=== PATIENT | female | born 1980 | race Native Hawaiian/Other Pacific Islander ===

== ENCOUNTER → 2017-07-24 | Outpatient (CLI) | payer MEDICAID | LOC: FIMAGING 12:47 | PROVIDERS: ATTEND Advanced Practice Midwife | DX: O09.511 Supervision of elderly primigravida, first trimester (principal); Z3A.12 12 weeks gestation of pregnancy ==

== ENCOUNTER → 2017-09-29 | Outpatient (CLI) | payer MEDICAID | LOC: FIMAGING 09:24 | PROVIDERS: ATTEND Obstetrics & Gynecology | DX: O09.512 Supervision of elderly primigravida, second trimester (principal); Z3A.21 21 weeks gestation of pregnancy ==

== ENCOUNTER → 2017-12-22 | Outpatient (CLI) | payer MEDICAID | LOC: FIMAGING 10:13 | PROVIDERS: ATTEND Student in an Organized Health Care Education/Training Program | DX: O09.513 Supervision of elderly primigravida, third trimester (principal); Z3A.33 33 weeks gestation of pregnancy ==

== ENCOUNTER 2018-01-24 11:29 | Inpatient (IN) | payer MEDICAID ==
[2018-01-24] MEDS ORDERED: OLIVE OIL 118 ML BTL MISC PRN (11:48)
[2018-01-24] MEDS ORDERED: MISOPROSTOL 200 MCG TAB PO PRN (11:48)
[2018-01-24] MEDS ORDERED: TERBUTALINE SULFATE 1 MG/ML VIAL IV PRN (11:48)
[2018-01-24] MEDS ORDERED: AMMONIA AROMATIC 1 EACH AMP IH PRN (11:48)
[2018-01-24] MEDS ORDERED: EPSOM SALT 454 GM TP PRN (11:48)
[2018-01-24] MEDS ORDERED: IBUPROFEN 600 MG TAB PO PRN (11:48)
[2018-01-24] MEDS ORDERED: LIDOCAINE 1% 300 MG/30 ML SDV SC PRN (11:48)
[2018-01-24] MEDS ORDERED: LR 1,000 ML IV PRN (11:48)
--- NOTE | 2018-01-24 11:51 | PDGENHP ---
History and Physical - History of Present Illness History Information - Allergies/Home Medication List Allergies/Adverse Reactions: No Known Allergies Allergy (Unverified 01/24/18 11:48) Review of Systems Review of Systems: Physical Exam Physical Exam:
--- NOTE | 2018-01-24 12:02 | PDGENHP ---
History and Physical History and Physical: CARE: [facility] HPI: Patient is a 38 yo G 1 P 0 at 38.3 wks ega who presents to L&D with complaints of SROM clear fluid at 0130 and contractions that became more painful and regular at 0600. Baby is active and she has had some light bloody show. EDC: 02/04/18 which is based on LMP: 04/30/18 which is known and consistent with Ultrasound at 8 weeks. Her is complicated by: AMA h/o anxiety - not treated Review of Systems: Constitutional: Denies any fever, chills, or fatigue HEENT: denies any visual changes, difficulty swallowing, hearing loss Cardiovascular: Denies any chest pain, palpitations, leg swelling Respiratory: denies any cough, wheezing, or shortness of breathe GI: Denies any nausea, vomiting, diarrhea, constipation : denies any dysuria, urgency, frequency, vaginal bleeding Musculoskeletal: denies any muscle or bone pain Skin: denies any rashes Neuro: denies any headache, seizures, lightheadedness, dizziness, or loss of consciousness Psychiatric: denies any depression, anxiety, or SI/HI thoughts HISTORY: Previous OB history: none Past medical history: Past surgical history: buttocks lipoma removed in her 20s, tonsillectomy age 17 Medications: PNV, iron Allergies (list reaction): NKDA LABS: Rh: A pos ABS: Neg Rubella: Immune HbsAg: NR HIV: NR VDRL: NR 1hr: 132; 3hr: WNL-72/143/119/82 GC: Neg Chlamydia: Neg Pap: Normal GBS: neg BMI: (prepreg) 21.5 PHYSICAL EXAM: Constitutional: WN, A&Ox3 HEENT: normocephalic atraumatic, supple Heart: RRR, no murmur Chest: CTA-B Abdomen: Soft, nontender, gravid SVE: 6/90/-2 Extremities: sml edema, negative guillermo's sign Neuro: grossly normal Psych: normal affect assessment: Reassuring FHTs, baseline 120s +accels, no decels, moderate variability Contractions: toco q 2-3 Assessment: 1) 38 yo G 1 P 0 with IUP@ 38.3 wks ega 2) SROM with active labor 3) GBS neg 4) Cat 1 FHR tracing Plan: 1) Admit to L&D 2) Intermittent monitoring per protocol after reactive NST 3) Diet as tolerated 4) Pain control as patient desires 5) Anticipate
[2018-01-24 12:21] LABS: PLATELET COUNT 334 10^3/uL (150-400)
[2018-01-24] MEDS ORDERED: TERBUTALINE SULFATE 1 MG/ML VIAL ONE (12:42)
[2018-01-24] MEDS ORDERED: OLIVE OIL 118 ML BTL ONE (12:42)
[2018-01-24] MEDS ORDERED: AMMONIA AROMATIC 1 EACH AMP IH ONE (12:42)
[2018-01-24] MEDS ORDERED: OXYTOCIN 10 UNIT/ML VIAL ONE (12:42)
[2018-01-24] MEDS ORDERED: LIDOCAINE 1% 300 MG/30 ML SDV ONE (12:42)
[2018-01-24] MEDS ORDERED: MISOPROSTOL 200 MCG TAB ONE (12:43)
[2018-01-24] MEDS ORDERED: BUPIVACAINE 0.25% 30 ML SDV ONE (12:49)
[2018-01-24] MEDS ORDERED: fentaNYL 200 MCG, BUPIVACAINE 0.5% 20 ML in NS 100 ML EP SCH ×2 (13:00→14:30)
[2018-01-24] MEDS ORDERED: PHENYLEPHRINE HCL 100 MCG/ML SYR ONE (13:52)
--- NOTE | 2018-01-24 13:52 | PDMN ---
Medical Necessity Medical necessity: C/M review: est. > 2 MN LOS for eval and TX of expectant management of labor and delivery per H/P.
--- NOTE | 2018-01-24 14:18 | OBPROG ---
Labor Progress Note Assessment/Plan: Assessment: 38 y.o G1 at 38.3 weeks EGA post SROM/active labor Category 2 EFM Patient requesting epidural IUPC and FSE placed Inadequate contraction pattern Plan: Anesthesia at bedside to place epidural Dr. Zavaleta aware of EFM tracing - category 2 strip and available in house Will continue to monitor closely Will start pitocin augmentation when EFM reactive 01/24/18 17:48 01/24/18 17:55 Subjective/Intrapartum Course: 01/24/18 17:58 Patient uncomfortable, using nitrous for pain relief but now asking for epidural Objective: 01/24/18 12:05 Patient ABO/Rh A POSITIVE 01/24/18 12:05 Category 2 EFM Had a 10 minute prolonged decel to 50-60s that resolved with position changes - currently having moderate variable decels with contractions, mod variability, no accels. Contractions somewhat irregular q 2-5 minutes - SVE Dilation (cm): 9 Effacement (%): 80 Station: -1 Membranes: SROM Amniotic Fluid Color: Clear - Contraction Pattern Assessment Current Contraction Pattern: Irregular - Procedures Non-surgical Procedures: FSE, IUPC ICD10 Worksheet Patient Problems: Problems Problem Status Onset AMA (advanced maternal age) primigravida 35+ Acute Vaginal delivery Acute - ICD10 Problem Qualifiers (1) AMA (advanced maternal age) primigravida 35+ (2) Vaginal delivery
[2018-01-24] MEDS ORDERED: NALOXONE HCL 0.4 MG/ML INJ IVP PRN (14:22)
[2018-01-24] MEDS ORDERED: PHENYLEPHRINE HCL 100 MCG/ML SYR IVP PRN (14:22)
[2018-01-24] MEDS ORDERED: ONDANSETRON 4 MG/2 ML VIAL IVP PRN (14:22)
--- NOTE | 2018-01-24 14:25 | PDANEPAE ---
ANE History of Present Illness 38 year old female for labor epidural, first baby. ANE Past Medical History - Cardiovascular History Hx Hypertension: No Hx Arrhythmias: No Hx Chest Pain: No Hx Coronary Artery / Peripheral Vascular Disease: No Hx CHF / Valvular Disease: No Hx Palpitations: No - Pulmonary History Hx COPD: No Hx Asthma/Reactive Airway Disease: No Hx Recent Upper Respiratory Infection: No Hx Oxygen in Use at Home: No Hx Sleep Apnea: No ANE Review of Systems Review of systems is: negative Review of Systems: ANE Patient History - Allergies Allergies/Adverse Reactions: No Known Allergies Allergy (Unverified 01/24/18 11:48) ANE Labs/Vital Signs - Labs Result Diagrams: 01/24/18 12:05 ANE Physical Exam - Airway Neck exam: FROM Mallampati Score: Class 2 Mouth exam: normal dental/mouth exam - Pulmonary Pulmonary: no respiratory distress - Cardiovascular Cardiovascular: regular rate and rhythym - ASA Status ASA Status: I ANE Anesthesia Plan Anesthesia Plan: epidural
[2018-01-24] MEDS ORDERED: fentaNYL 2MCG/ML/BUP 0.1% RTU 100 ML EP SCH (14:30)
[2018-01-24] MEDS ORDERED: LR 500 ML IV SCH (14:30)
[2018-01-24] MEDS ORDERED: LR 500 ML IV PRN (15:20)
[2018-01-24] MEDS ORDERED: OXYTOCIN/RINGERS LACTATE 500 ML IV SCH (15:30)
--- NOTE | 2018-01-24 22:11 | OBDEL ---
Info Type: Vaginal Presentation at Delivery: Vertex L&D Analgesia/Anesthesia Type: Epidural, Nitrous GBS+: No Intrapartum Medications: Generic Name Dose Route Start Last Admin Trade Name Shannon PRN Reason Stop Dose Admin Lactated Ringer's 1,000 mls @ 0 mls/hr 01/24/18 11:48 01/24/18 12:05 Lr IV 01/25/18 11:47 1,000 mls PRN PRN Administration SEE PROTOCOL CONDITIONS Protocol Per Protocol Oxytocin/Lactated Ringer's 500 mls @ 0 mls/hr 01/24/18 15:30 01/24/18 15:40 Pitocin 30 Units/Lr (Premix) IV 07/23/18 15:29 500 mls CONT MINESH Administration Protocol Per Protocol - Hospital Course Intrapartum: 01/24/18 17:58 Patient uncomfortable, using nitrous for pain relief but now asking for epidural Indications for Delivery: Spontaneous Labor, SROM Vaginal Delivery - Delivery Provider Delivery Physician/CNM: Meryl Overton - Labor and Delivery Onset of Contractions Date: 01/24/18 Onset of Contractions Time: 06:00 Onset of Contractions Type: Augmented Rupture of Membranes Date: 01/24/18 Rupture of Membranes Time: 01:30 Rupture of Membranes Type: Spontaneous Amniotic Fluid Color: Clear Dilation Complete Date: 01/24/18 Dilation Complete Time: 18:36 Placenta Delivery Date: 01/24/18 Placenta Delivery Time: 21:34 Total Hours of Labor: 15 Non-surgical Procedures: FSE, IUPC Laceration: 1st Degree (vaginal) Vaginal Sponge Count Correct: Yes Vaginal Needle Count Correct: Yes Vaginal Sweep Performed: No EBL: 200 Delivery Events: Nuchal Cord - Medications Labor Augmentation/Induction Methods Used: Pitocin Labor Augmentation/Induction Indication: Contraction Strength Inadequate Data JT: 02/04/18 Gestational Age: 38 week(s) and 3 day(s) Gatica Delivery Date: 01/24/18 Delivery Time: 21:27 Sex of : Male Score (1 Min): 8 Score (5 Min): 8 ICD10 Worksheet Patient Problems: Problems Problem Status Onset AMA (advanced maternal age) primigravida 35+ Acute Vaginal delivery Acute - ICD10 Problem Qualifiers (1) AMA (advanced maternal age) primigravida 35+ (2) Vaginal delivery
[2018-01-24] MEDS ORDERED: HYDROCORTISONE 0.5% CREAM TP PRN (22:17)
[2018-01-24] MEDS ORDERED: SIMETHICONE 80 MG TAB CHEW PO PRN (22:17)
[2018-01-24] MEDS ORDERED: ACETAMINOPHEN 325 MG TAB PO PRN (22:17)
[2018-01-24] MEDS ORDERED: HYDROCODONE/APAP 5/325 TAB PO PRN (22:17)
[2018-01-25] MEDS: IBUPROFEN 600 MG TAB PO PRN ×3 (04:00→17:51)
[2018-01-25] MEDS: DOCUSATE SODIUM 100 MG CAP PO PRN ×2 (09:59→21:33)
--- NOTE | 2018-01-25 13:02 | OBPP ---
Progress Note Assessment/Plan: Assessment: s/p PPD # 1 - pt is stable Plan: Continue routine pp care Plan for d/c home in am 01/26 support 01/25/18 12:59 Subjective/ Course: 01/25/18 13:00 Pt seen and examined. Doing well, with no complaints. She is having moderate cramping, bu taking Motrin with relief. Mod lochia. She is OOB, kaylan regular diet , voiding and passing flatus. Trying to have a BM. BF is going well so far. Objective: 01/24/18 12:05 Patient ABO/Rh A POSITIVE 01/24/18 12:05 Temp Pulse Resp BP Pulse Ox 36.6 C 74 16 108/74 96 01/25/18 09:00 01/25/18 09:00 01/25/18 09:00 01/25/18 09:00 01/25/18 09:00 Uterine Position/Fundal Height: Umbilicus -2 Uterine Tone: Firm Physical Exam - Physical Exam Respiratory: lungs clear, normal breath sounds Cardiac/Chest: regular rate, rhythm Abdomen: normal bowel sounds, non-tender, soft, flatus (+) Extremities: non-tender, normal inspection Skin: normal color, warm/dry Neuro/Psych: alert, normal mood/affect, oriented x 3
[2018-01-26] MEDS: IBUPROFEN 600 MG TAB PO PRN ×3 (02:54→16:43)
[2018-01-26 07:18] VITALS: BP 120/74
--- NOTE | 2018-01-26 12:34 | OBPP ---
Progress Note Assessment/Plan: Assessment: 38 yo ppd# 2 s/p uncomplicated post course pumping and breast feeding hx anxiety/depression - working with therapist Plan: routine post care and discharge instructions 01/26/18 12:31 Subjective/ Course: 01/25/18 13:00 Pt seen and examined. Doing well, with no complaints. She is having moderate cramping, bu taking Motrin with relief. Mod lochia. She is OOB, kaylan regular diet , voiding and passing flatus. Trying to have a BM. BF is going well so far. 01/26/18 12:32 patient is doing well. pain is well controlled. patient is exhausted but ready to go home. working on breast feeding. denies headache and changes in vision. normal lochia. mood stable. feels she has appropriate resources. Objective: 01/24/18 12:05 Patient ABO/Rh A POSITIVE 01/24/18 12:05 Temp Pulse Resp BP Pulse Ox 36.8 C 64 16 120/74 92 01/26/18 07:17 01/26/18 07:17 01/26/18 07:17 01/26/18 07:17 01/26/18 07:17 Physical Exam - Physical Exam Neck: non-tender, full range of motion, supple Respiratory: chest non-tender, lungs clear, normal breath sounds Cardiac/Chest: normal peripheral pulses, regular rate, rhythm Abdomen: normal bowel sounds, non-tender, other (gravid ) Extremities: normal range of motion, non-tender, normal inspection, normal capillary refill Skin: normal color, warm/dry Neuro/Psych: no motor/sensory deficits, alert, normal mood/affect, oriented x 3
--- NOTE | 2018-01-26 13:09 | OBGCSDC ---
General Delivery Information - General Info : 1 Para: 1 Abortions: 0 Type: Vaginal L&D Analgesia/Anesthesia Type: Epidural, Nitrous Admission Date: 01/24/18 Labs: Patient ABO/Rh A POSITIVE 01/24/18 12:05 Hct 41.1 % (38.0-47.0) 01/24/18 12:05 - Hospital Course Antepartum: 01/26/18 13:08 anxiety and depression in . started working with a therapist which has been very helpful. Intrapartum: 01/24/18 17:58 Patient uncomfortable, using nitrous for pain relief but now asking for epidural : 01/25/18 13:00 Pt seen and examined. Doing well, with no complaints. She is having moderate cramping, bu taking Motrin with relief. Mod lochia. She is OOB, kaylan regular diet , voiding and passing flatus. Trying to have a BM. BF is going well so far. 01/26/18 12:32 patient is doing well. pain is well controlled. patient is exhausted but ready to go home. working on breast feeding. denies headache and changes in vision. normal lochia. mood stable. feels she has appropriate resources. Vaginal - Delivery Provider Delivery Physician/CNM: Meryl Overton - Diagnosis Labor: Augmented Rupture of Membranes Type: Spontaneous Amniotic Fluid Color: Clear Laceration: 1st Degree (vaginal) Delivery Events: Nuchal Cord - Procedures Non-surgical Procedures: FSE, IUPC - Delivery Non-surgical Procedures: FSE, IUPC EBL: 200 [place] Data JT: 02/04/18 Gestational Age: 38 week(s) and 5 day(s) Gatica Delivery Date: 01/24/18 Delivery Time: :19 Sex of Infant: Male [place] Weight (gm): 2740 g Score (1 Min): 8 Score (5 Min): 8 Discharge Information - Discharge Information Condition: Good
== END 2018-01-26 16:56 | disposition home or self-care (01) | DRG 560 ==
LOC: FLD 11:29 → FOB 01-25 00:49
PROVIDERS: ADMIT Advanced Practice Midwife; ATTEND Obstetrics & Gynecology
PROC: 10E0XZZ Delivery of Products of Conception, External Approach (ICD-10-PCS; principal; 2018-01-24)
PROC: 0HQ9XZZ Repair Perineum Skin, External Approach (ICD-10-PCS; principal; 2018-01-24)
DX: O70.0 First degree perineal laceration during delivery (principal); O69.81X0 Labor and delivery complicated by cord around neck, without compression, not applicable or unspecified; O99.344 Other mental disorders complicating childbirth; F41.8 Other specified anxiety disorders; Z3A.38 38 weeks gestation of pregnancy; Z37.0 Single live birth
CPT/HCPCS: J2370; J2590; J3010; J3105